=== PATIENT | female | born 1985 | race American Indian/Alaskan Native ===

== ENCOUNTER 2019-06-24 16:02 | Emergency (ER) | payer SELFPAY ==
[2019-06-24] MEDS ORDERED: BUTALB/ACETAMINOPHEN/CAFFEINE TAB PO ONE (19:41)
[2019-06-24] MEDS ORDERED: diphenhydrAMINE 25 MG CAP PO ONE (19:41)
[2019-06-24] MEDS ORDERED: METOCLOPRAMIDE 10 MG TAB PO ONE (19:41)
[2019-06-24 19:55] VITALS: BP 111/74
--- NOTE | 2019-06-24 20:13 | Emergency Department Report ---
ED Headache HPI - General Chief Complaint: Abdominal Pain Stated Complaint: HEADACHE/ABD PAIN Time Seen by Provider: 06/24/19 19:23 Source: patient Exam Limitations: no limitations - History of Present Illness Initial Comments: This is a 34-year-old female who presents to the ED complaining of throbbing frontal headache for the past 2 weeks. Patient states she has been taking BC powder with no relief. Patient states pain is localized to the [place] side of the head. Patient denies any history of migraine headaches. Patient also complaining of some suprapubic pain that is been going on for about a week. Patient denies any vaginal discharge, urinary frequency, urgency or pain Patient states last menstrual period was the beginning of June. Timing/Duration: other (2 weeks) Quality: achy, throbbing Head Injury Location: frontal Recent Head Trauma: no recent headache/trauma Associated Symptoms: denies: confusion, fatigue, facial pain, nausea/vomiting, nasal congestion Allergies/Adverse Reactions: Allergies No Known Allergies Allergy (Unverified 06/24/19 16:29) ED Review of Systems ROS: Stated complaint: HEADACHE/ABD PAIN Other details as noted in HPI Comment: All other systems reviewed and negative ED Past Medical Hx - Past Medical History Previous Medical History?: No - Surgical History Past Surgical History?: No - Social History Smoking Status: Current Every Day Smoker Substance Use Type: None ED Physical Exam - General Limitations: No Limitations General appearance: alert, in no apparent distress - Head Head exam: Present: atraumatic, normocephalic - Eye Eye exam: Present: normal appearance - ENT ENT exam: Present: mucous membranes moist - Neck Neck exam: Present: normal inspection, full ROM - Respiratory Respiratory exam: Present: normal lung sounds bilaterally. Absent: respiratory distress - Cardiovascular Cardiovascular Exam: Present: regular rate, normal rhythm. Absent: systolic murmur, diastolic murmur, rubs, gallop - GI/Abdominal GI/Abdominal exam: Present: soft, normal bowel sounds - Extremities Exam Extremities exam: Present: normal inspection - Back Exam Back exam: Present: normal inspection - Neurological Exam Neurological exam: Present: alert, oriented X3, CN II-XII intact, normal gait - Expanded Neurological Exam Expanded Patient oriented to: Present: person, place, time Speech: Present: fluid speech Cerebellar function: Finger to Nose: Normal Sensory exam: Upper Extremity Light Touch: Normal Motor strength exam: RUE: 5, LUE: 5, RLE: 5, LLE: 5 Best Eye Response (Lea): (4) open spontaneously Best Motor Response (Lea): (6) obeys commands Best Verbal Response ([place]): (5) oriented Lea Total: 15 - Psychiatric Psychiatric exam: Present: normal affect, normal mood - Skin Skin exam: Present: warm, dry, intact, normal color. Absent: rash ED Course Vital Signs 06/24/19 06/24/19 16:16 19:44 Temperature 97.8 F 97.8 F Pulse Rate 76 67 Respiratory 16 12 Rate Blood Pressure 120/73 111/74 O2 Sat by Pulse 98 100 Oximetry ED Medical Decision Making - Medical Decision Making 34-year-old female presents with headache and wanting to be screened for STDs. Pain medication given in the ED for headache. Patient reports to feeling better upon reevaluation. Urinalysis and urine test pending I did discuss with patient to follow-up with [facility] or the health department for STD screening. I was then informed by EMT that patient has left AMA prior to the results of the urine. Urinalysis and urine test was negative. Patient given resources for the health department for STD screening. Vital signs are normal patient was in no acute distress in the ED Critical care attestation.: If time is entered above; I have spent that time in minutes in the direct care of this critically ill patient, excluding procedure time. ED Disposition Clinical Impression: Headache, test negative Disposition: -07 LEFT AGAINST MED ADVICE Is pt being admited?: No Does the pt Need Aspirin: No Condition: Stable Instructions: Abdominal Pain (ED), Acute Headache (ED), Migraine Headache (ED), Tension Headache (ED) Additional Instructions: Make sure to follow up with the primary care physician as discussed. Take all your medications as you've been prescribed. If you have any worsening symptoms or develop new symptoms please return to ED immediately. Referrals: PRIMARY CARE, [Primary Care Provider] - 3-5 Days [facility] [Outside] - 3-5 Days [facility] [Outside] - 3-5 Days [facility] [Outside] - 3-5 Days Forms: AMA Form Time of Disposition: 21:28
[2019-06-24 21:04] LABS: Bilirubin,Urine NEG (Negative); Blood,Urine SM (Negative); Color,Urine Yellow (Yellow); Mucus,Urine FEW /HPF; Protein,Urine <15 mg/dL mg/dL (Negative); Urobilinogen,Urine < 2.0 mg/dL (<2.0)
[2019-06-24 21:05] LABS: HCG Qualitative,Urine Negative (Negative)
== END 2019-06-24 21:35 | disposition left against medical advice (07) ==
LOC: ED 16:02
DX: R51 Headache (principal); R10.2 Pelvic and perineal pain; F17.200 Nicotine dependence, unspecified, uncomplicated; Z32.02 Encounter for pregnancy test, result negative
CPT/HCPCS: 81001; 81025; 99283